=== PATIENT | male | born 1935 | race Caucasian/White ===

== ENCOUNTER 2017-09-29 06:08 | Observation (INO) | payer MEDICARE ==
[~2017-09-29] VITALS: Ht 177.8 cm; Wt 97.8 kg
[~2017-09-29 06:08] MED LIST: ASPI81 PO; B COTAB3 PO; FOLI1TAB PO; GLUCTAB PO; HYDR-3533 PO; LISI2.5T3 PO; LORC10TA PO; LORTS PO; METO10TA PO; OMEP20CA5 PO; POTA-243 PO; REST15CA PO; SIMV20 PO; TAB-TAB PO; TERA5CAP34 PO; TEST200I13 IM; TESTOSTERONE IM; VENTAER INH; VITA100017 PO; VITA10002 PO; VITA400C28 PO; VITAMIN D 3 PO; [UNRECOGNIZED DRUG - OTHER] PO
[2017-09-29] MEDS ORDERED: AMPICILLIN/SULBAC 3 GM/NS 100 ML IV SCH ×2 (06:45)
[2017-09-29] MEDS ORDERED: CHLORHEXIDINE GLUCONATE 2 % 1 PACK (2 CLOTHS) TOPICAL PRN (07:00)
[2017-09-29] MEDS ORDERED: METOPROLOL TARTRATE 25 MG TAB PO PRN (07:00)
[2017-09-29] MEDS ORDERED: SODIUM CHLORID 0.9% 500 ML IV PRN (07:00)
[2017-09-29] MEDS ORDERED: LACTATED RINGER'S 1000 ML IV PRN (07:00)
[2017-09-29] MEDS ORDERED: POVIDONE IODINE 5% (ANTISEPSIS KIT) 4 APPLICATIONS EACH NARE PRN (07:00)
[2017-09-29] MEDS ORDERED: LIDOCAINE 1%/EPINEPHrine 1:100,000 SOLN 30 ML VIAL ONE (07:05)
[2017-09-29] MEDS ORDERED: OXYMETAZOLINE HCL 0.05% 15 ML NASAL SPRAY ONE (07:05)
[2017-09-29] MEDS ORDERED: TEST1INJ3 IM (08:13)
[2017-09-29] MEDS ORDERED: MSIR15 PO (08:13)
[2017-09-29] MEDS ORDERED: MIDAZOLAM HCL 2 MG/2 ML VIAL ONE (08:28)
[2017-09-29] MEDS ORDERED: FAMOTIDINE 20 MG/2 ML VIAL ONE (09:27)
[2017-09-29] MEDS ORDERED: ACETAMINOPHEN 1000 MG/100 ML 100 ML IV ONE (09:48)
[2017-09-29] MEDS ORDERED: MUPIROCIN 2% OINT 22 GM TUBE ONE (11:18)
[2017-09-29] MEDS ORDERED: MORPHINE SULFATE 4 MG/ML INJ ONE (12:01)
[2017-09-29] MEDS ORDERED: HYDROmorphone HCL PF 2 MG/ML VIAL ONE (12:20)
[2017-09-29] MEDS ORDERED: ONDANSETRON HCL 4 MG/2 ML VIAL IV PUSH PRN (13:30)
[2017-09-29] MEDS ORDERED: ACETAMINOPHEN/HYDROcodone 325 MG/5 MG TAB PO PRN (13:30)
[2017-09-29] MEDS ORDERED: LABETALOL HCL 100 MG/20 ML VIAL ONE (13:50)
[2017-09-29] MEDS ORDERED: LORazepam 2 MG/ML VIAL ONE (13:53)
[2017-09-29] MEDS ORDERED: LORazepam 2 MG/ML VIAL IV PRN (14:30)
[2017-09-29] MEDS: LACTATED RINGER'S 1000 ML INJ 1,000 ML IV SCH ×2 (14:51→21:58)
[2017-09-29 15:21] VITALS: O2SAT 99
[2017-09-29 16:00] VITALS: BP 197/92; PULSE 91; RESP 20; TEMP 97.8; O2SAT 98
[2017-09-29] MEDS: AMPICILLIN/SULBAC 3 GM/NS 100 ML IV SCH ×2 (18:00)
[2017-09-29] MEDS: MORPHINE SULFATE 15 MG TAB PO PRN (18:19)
[2017-09-29 20:00] VITALS: BP 180/93; PULSE 85; RESP 18; TEMP 98.1; O2SAT 100
[2017-09-29 20:25] VITALS: O2SAT 99
--- NOTE | 2017-09-29 21:59 | EKG ---
Date Performed: 09/29/2017 Time Performed: 07:01:36 PTAGE: 81 years EKG: Sinus rhythm WITH OCCASIONAL SUPRAVENTRICULAR PREMATURE COMPLEXES BORDERLINE ECG PREVIOUS TRACING : 06/10/2010 07.42 Since the prior tracing, there has been no significant vogel DOCTOR: Alejandro Carter Interpretating Date/Time 09/29/2017 21:58:11
[2017-09-30] VITALS: BP 162/75; PULSE 66; RESP 17; TEMP 97.8; O2SAT 100
[2017-09-30] MEDS: AMPICILLIN/SULBAC 3 GM/NS 100 ML IV SCH ×2 (02:43)
[2017-09-30] MEDS: MORPHINE SULFATE 15 MG TAB PO PRN ×2 (02:59→08:46)
[2017-09-30 08:00] VITALS: BP 191/85; PULSE 87; RESP 20; TEMP 98; O2SAT 96
[2017-09-30 08:38] VITALS: O2SAT 97
[2017-09-30] MEDS ORDERED: PHENYLEPH/NS 1000 MCG/10 ML SYR IV ONE (12:00)
[2017-09-30] MEDS ORDERED: DEXAMETHASONE SOD PHOS 4 MG/ML VIAL IV ONE (12:00)
[2017-09-30] MEDS ORDERED: GLYCOPYRROLATE 1 MG/5 ML SYRINGE IV PUSH ONE (12:00)
[2017-09-30] MEDS ORDERED: ONDANSETRON HCL 4 MG/2 ML VIAL IV PUSH ONE (12:00)
[2017-09-30] MEDS ORDERED: LIDOCAINE HCL 1% PF 5 ML SYRINGE OTHER ONE (12:00)
[2017-09-30] MEDS ORDERED: ROCURONIUM INJ 50 MG/5 ML VIAL IV ONE (12:00)
[2017-09-30] MEDS ORDERED: NEOSTIGMINE 5 MG/5 ML SYRINGE IV PUSH ONE (12:00)
[2017-09-30] MEDS ORDERED: PROPOFOL 200 MG/20 ML AMP IV ONE (12:00)
[2017-09-30] MEDS ORDERED: ESMOLOL HCL 100 MG/10 ML VIAL IV ONE (12:00)
[2017-09-30] MEDS ORDERED: ePHEDrine/NS 25 MG/5 ML SYRINGE IV ONE (12:00)
[2017-09-30] MEDS ORDERED: SUCCINYLCHOLINE CHLORIDE 200 MG/10 ML VIAL IV ONE (12:00)
--- NOTE | 2017-10-24 20:30 | MP ---
cc: Justice Escamilla MD, James M MD DATE OF OPERATION: 09/29/2017 SURGEON: Dr. Justice Escamilla. PREOPERATIVE DIAGNOSES: 1. Nasal airway obstruction. 2. Bilateral anterior nasal stenosis. 3. Nasal septal deviation. 4. Hypertrophied inferior turbinates. POSTOPERATIVE DIAGNOSES: 1. Nasal airway obstruction. 2. Bilateral anterior nasal stenosis. 3. Nasal septal deviation. 4. Hypertrophied inferior turbinates. OPERATION PERFORMED: 1. Open repair, bilateral anterior nasal stenosis with cartilage grafting. 2. Open repair, nasal septal fracture. 3. Bilateral submucosal resection of inferior turbinates. INDICATIONS: Documented in the history and physical. DETAILS OF PROCEDURE: The patient was taken to OR #2 and placed in the supine position. Following induction of general anesthesia and intubation, the nose was packed bilaterally with cotton pledgets saturated in 0.05% oxymetazoline. The nose was injected into the columella of the bilateral nasal vestibules, the nasal tip and dorsum, as well as into the septal mucosa and inferior turbinates with a total of 16 mL of 1% Xylocaine with epinephrine 1:100,000. He was then prepped and draped for surgery. A W-plasty incision was made on the inferior surface of the columella and then, using sharp dissection, this was carried down to the level of the inferior borders of the medial crura of the lower lateral cartilages. These inferior borders were then followed anteriorly and superiorly extending the incisions within the nasal vestibule and elevating the skin from the nasal tip. Sharp dissection continued over the domes and then out laterally along the lateral crura of the lower lateral cartilages following the outer surface of these cartilages. Dissection then continued superiorly on the upper laterals as far as the junction of the bony and cartilaginous nasal dorsum. The skin was then held in retraction with a cotton pledget placed beneath the skin envelope and attached to the drape superiorly. This exposed the lower lateral cartilages. Sharp dissection then continued between the medial crura and dome of the lower lateral cartilages posteriorly until the anterior end of the quadrangular cartilage was exposed. This was displaced into the left nasal vestibule. Soft tissue was then elevated from the quadrangular cartilage using a caudal elevator. This continued posteriorly until the quadrangular cartilage was completely exposed. A cumulative area of 2 x 2.5 cm of this cartilage was then removed in a piecemeal fashion using a Evelyn elevator and Claflin-Garcia forceps. This was completed, preserving 1.5 cm dorsal and caudal cartilaginous struts. The cartilaginous strut was then completely mobilized from its attachments to the maxillary crest and anterior nasal spine, then also released from its attachment to the dorsal cartilaginous strut, completely freeing it from the nose. It was then placed into saline on the back table for use in reconstruction later in the operation. When this was completed, the mucosa was then elevated from the bony septum and the maxillary crest. These were removed using Nguyễn-Garcia forceps and David septal forceps on the bony septum. This was carried back as far as the rostrum of the sphenoid. The maxillary crest was removed using a 6 mm Rupert chisel, preserving the anterior nasal spine. At this point, the medial crura of the lower laterals were addressed. These were very broad at their inferior limits and caused a very wide columellar base responsible for a large portion of the patient's nasal obstruction. These bases were then completely mobilized and detached from the skin of the nasal vestibule to allow for them to be brought to the midline during reconstruction of the nose. The reconstruction began with returning of the dorsal cartilaginous strut to its place in the midline. It was then reattached to the dorsal cartilaginous strut superiorly with a single suture of 5-0 clear nylon. It was attached to the soft tissue investing the anterior nasal spine below with identical suture technique. The columella was then reconstructed incorporating a 3 x 15 mm segment of the quadrangular cartilage taken from the nasal septum. This was held in place in the midline using interrupted sutures of the same 5-0 clear nylon technique and continued more inferiorly to bring in the bases of the lower lateral cartilages to narrow the columellar base and to further open the airway. When this was completed, 4-0 Vicryl sutures were used in a horizontal mattress technique to reattach the skin of the nasal vestibule in the midline to the anterior cartilaginous strut. A 4-0 plain gut was then used to reapproximate the mucosal layers to each other further back in the nasal vault. The inferior turbinates were addressed at this point. They were fractured out medially and stab incisions made along their inferior surfaces. Through these incisions, the submucosal soft tissue was reduced using a curette and preserving the conchal bone. The incisions were then cauterized using suction Bovie at 45 bryant and the remnants of the inferior turbinates were then relateralized to the lateral nasal wall. Prior to closure of the skin envelope, an additional horizontal mattress suture of 5-0 clear nylon was placed between the lateral crura of lower lateral cartilages to further elevate the nasal tip and further open the nasal airway. The skin was then redraped over the tip and the W-plasty incision was closed with 5-0 fast-absorbing plain gut using interrupted technique. The nose was then irrigated and suctioned and then 5.5 cm Rapid Rhino packs were placed into the nasal vault. Each was inflated with 5 mL of air. A coat of mupirocin ointment was then placed on the external and internal portions of the incision. The procedure was then terminated. The patient was reversed from anesthesia and taken to recovery in good condition. There were no complications. Blood loss 120 mL. MD SULLY Cedillo//josselyn , 04:31 PM , 07:40 PM
== END 2017-09-30 09:23 | disposition home or self-care (01) ==
LOC: PHSDC 06:08 → EDBD 06:08 → PH3A 14:44
PROVIDERS: ADMIT Otolaryngology; ATTEND Otolaryngology
DX: J34.89 Other specified disorders of nose and nasal sinuses (principal); J34.2 Deviated nasal septum; J34.3 Hypertrophy of nasal turbinates; R94.31 Abnormal electrocardiogram [ECG] [EKG]
CPT/HCPCS: 00160; 30140; 30465; 30520; 93005; 94762; 96361; 96365; 96375; G0378; J0131; J0295; J0330; J1100; J1170; J2060; J2250; J2270; J2370; J2405; J2710; J3010; J7120